=== PATIENT | female | born 1990 | race African-American/Black ===

== ENCOUNTER 2017-10-31 10:43 | Emergency (ER) | payer SELFPAY ==
[2017-10-31] MEDS ORDERED: MORPHINE 4 MG/ML SYR ONE (11:19)
[2017-10-31] MEDS ORDERED: BUPIVACAINE 0.5% PF 10 ML VIAL ONE (11:20)
[2017-10-31] MEDS ORDERED: ONDANSETRON 4 MG/2 ML VIAL ONE (11:20)
[2017-10-31] MEDS ORDERED: LIDOCAINE 1% 20 ML MDV ONE (11:20)
--- NOTE | 2017-10-31 12:22 | RAD REPORT ---
EXAM DESCRIPTION: US - Abdomen Exam Limited - 10/31/2017 12:07 pm CLINICAL HISTORY: Abdominal pain. COMPARISON: 08/23/2010 FINDINGS: The gallbladder demonstrates shadowing gallstones. No pericholecystic fluid or gallbladder wall thickening. The common bile duct is normal measuring 4 mm. The liver demonstrates no findings of intrahepatic biliary dilatation. IMPRESSION: Cholelithiasis.
[2017-10-31 12:25] LABS: Absolute Lymphocytes (CBC) 1.2 K/uL (0.7-4.9); Absolute Monocytes 0.3 K/uL (0.1-1.3); Basophils % 0.3 % (0-1.3); Eosinophils % 0.5 % (0-4.4); Hematocrit 28.9 % (36.0-45.0); Lymphocytes % 22.1 % (15.3-44.8); MCH 26.7 pg (27.0-35.0); MCV 84.7 fL (80-100); Monocytes % 5.9 % (3.3-12.3); RBC Red Blood Cell Count 3.41 M/uL (3.86-4.86)
[2017-10-31 12:42] LABS: Urine Blood TRACE (NEG); Urine Glucose NEGATIVE (NEG); Urine Protein NEGATIVE (NEG); Urine pH 6.5 (5.0-7.0)
[2017-10-31 12:46] LABS: Bicarbonate 27 mEq/L (21-31); Glucose Level 73 mg/dL (65-120); Lipase 22 U/L (22-51); Potassium 3.4 mEq/L (3.6-5.0); Sodium Level 139 mEq/L (135-145)
[2017-10-31 12:49] LABS: ALT/SGPT 16 IU/L (10-60); AST/SGOT 16 IU/L (10-42); Albumin 3.2 g/dL (3.2-5.5); Alkaline Phosphatase 51 IU/L (42-121); BUN Blood Urea Nitrogen 8 mg/dL (6-20); Bilirubin Total 0.3 mg/dL (0.3-1.2); Protein, Total 6.2 g/dL (6.0-8.3)
--- NOTE | 2017-10-31 13:09 | ER ---
Nurse's Notes [facility] Name: Apurva John Age: 27 yrs Sex: Female : 1990 Arrival Date: 10/31/2017 Time: 10:45 Bed 18 Private MD: None, None Diagnosis: Acute cystitis without hematuria. Facial swelling. Dental pain. Biliary colic. Presentation: 10/31 10:49 Presenting complaint: Patient states: Patient reports RUQ pain, states she has a hx of ae1 gall bladder stones. Patient also reports pain and swelling to the right side of her mouth and to the top, right side of gums. Transition of care: patient was not received from another setting of care. Onset of symptoms was October 30, 2017. 10:49 Method Of Arrival: Ambulatory ae1 10:49 Acuity: VICTORINO 3 ae1 10:54 Initial Sepsis Screen: Does the patient have a suspected source of infection? Yes: ae1 Other: Patient has moderate swelling to right side of mouth and foul odor from mouth. Care prior to arrival: None. 11:59 Risk Assessment: Do you want to hurt yourself or someone else? Patient reports no em desire to harm self or others. 13:35 Initial Sepsis Screen: Does the patient meet any 2 criteria? No. Patient's initial em sepsis screen is negative. Triage Assessment: 10:55 General: Appears uncomfortable, Behavior is cooperative, anxious. Pain: Complains of ae1 pain in right cheek and right jaw Pain currently is 7 out of 10 on a pain scale. Neuro: Level of Consciousness is awake, alert, obeys commands, Oriented to person, place, time, situation. Respiratory: Airway is patent. GI: Reports upper abdominal pain, nausea. GI: Reports vomiting. 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 - Social history:: Smoking status: Patient uses tobacco products, smokes one-half pack cigarettes per day. - Ebola Screening: : No symptoms or risks identified at this time. Screenin:58 Abuse screen: Denies threats or abuse. Nutritional screening: No deficits noted. em Tuberculosis screening: No symptoms or risk factors identified. Fall Risk None identified. Assessment: 11:11 General: Appears in no apparent distress. uncomfortable, Behavior is cooperative. Pain: em Complains of pain in right upper quadrant and right cheek Pain currently is 7 out of 10 on a pain scale. Neuro: Level of Consciousness is awake, alert, obeys commands, Oriented to person, place, time, situation. Neuro: Denies weakness dizziness. Cardiovascular: Capillary refill < 3 seconds Patient's skin is warm and dry. Respiratory: Airway is patent Respiratory effort is even, unlabored, Respiratory pattern is regular, symmetrical. GI: Abdomen is flat, Bowel sounds present X 4 quads. Abd is soft X 4 quads Abdomen is tender to palpation in right upper quadrant and right lower quadrant Reports nausea, vomiting. : Urine is cloudy. EENT: No signs and/or symptoms were reported regarding the EENT system. Derm: Skin is intact, Skin is pink, warm \T\ dry. Musculoskeletal: Range of motion: intact in all extremities. 11:20 Reassessment: Patient appears in no apparent distress at this time. I agree with above iw assessment by Manuel Ruby LVN. 12:34 Reassessment: Patient appears in no apparent distress at this time. Patient and/or em family updated on plan of care and expected duration. Pain level reassessed. Patient is alert, oriented x 3, equal unlabored respirations, skin warm/dry/pink. Patient states feeling better. 13:30 Reassessment: Patient appears in no apparent distress at this time. Patient and/or em family updated on plan of care and expected duration. Pain level reassessed. Patient is alert, oriented x 3, equal unlabored respirations, skin warm/dry/pink. resting comfortably Patient states feeling better. Vital Signs: 10:52 BP 140 / 85; Pulse 98; Resp 16; Temp 98.2(O); Pulse Ox 100% on R/A; Weight 79.38 kg ae1 (R); Pain 7/10; 12:10 BP 114 / 71; Pulse 61; Resp 18; Pulse Ox 100% on R/A; Pain 2/10; em 13:30 BP 121 / 69; Pulse 61; Resp 16; Temp 98.0(O); Pulse Ox 99% on R/A; Pain 3/10; em ED Course: 10:45 Patient arrived in ED. mr 10:45 None, None is Private Physician. mr 10:52 Triage completed. ae1 10:54 Arm band placed on right wrist. ae1 11:01 Anup Domínguez MD is Attending Physician. ps1 11:15 Manuel Ruby LVN is Primary Nurse. em 11:50 Ultrasound completed. Patient tolerated well. sg3 11:58 No provider procedures requiring assistance completed. em 11:59 Patient has correct armband on for positive identification. Placed in gown. Bed in low em position. Call light in reach. Side rails up X 1. 12:07 US Abdomen Limited In Process Unspecified. EDMS 12:14 Initial lab(s) drawn, by me, sent to lab. Inserted saline lock: 22 gauge in right mh5 antecubital area, using aseptic technique. Blood collected. 12:15 Urine collected: clean catch specimen, clear. mh5 13:35 IV discontinued, intact, bleeding controlled, No redness/swelling at site. Pressure em dressing applied. Administered Medications: 11:39 Drug: morphine 4 mg Route: IVP; Site: right antecubital; iw 12:54 Follow up: Response: No adverse reaction; Pain is decreased em 11:39 Drug: Zofran 4 mg Route: IVP; Site: right antecubital; iw 12:53 Follow up: Response: No adverse reaction; Nausea is decreased em Outcome: 13:08 Discharge ordered by MD. ps1 13:45 Discharged to home ambulatory. em 13:45 Condition: good 13:45 Discharge instructions given to patient, Instructed on discharge instructions, follow up and referral plans. no drinking with medication, no driving heavy equipment, medication usage, Demonstrated understanding of instructions, follow-up care, medications, Prescriptions given X 4. 13:46 Patient left the ED. em Addendum: 11/03/2017 13:01 Addendum: Culture Results: Positive urine culture. Phone call Attempt #1 Not a working s s number. Signatures: Dispatcher [employer] EDNegar Francis Manuel Ruby LVN OPERATIONS TECH em Avani Goyal RN RN Kiarra Thompson RN RN Dwight Sánchez RN RN ae1 Negar Mcdonald mh5 Anup Domínguez MD MD ps1 Juliane Sanders 3
--- NOTE | 2017-10-31 13:09 | EDPHYS ---
Physician Documentation [facility] Name: Apurva John Age: 27 yrs Sex: Female : 1990 Arrival Date: 10/31/2017 Time: 10:45 Bed 18 Private MD: None, None ED Physician Anup Domínguez HPI: 10/31 11:12 This 27 yrs old Black Female presents to ER via Ambulatory with complaints of Abdominal ps1 Pain, Mouth Swelling. 11:12 pt with history of biliary colic. No elective surgery scheduled. States her pain ps1 started 2 days ago. Rated moderate to severe with attacks. No vomiting, jaundice, or fever. Additionally patient has a history of dental caries and has 2 day history of right maxillary facial swelling and dental pain. No obvious abscess or drainage. . 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 - Social history:: Smoking status: Patient uses tobacco products, smokes one-half pack cigarettes per day. - Ebola Screening: : No symptoms or risks identified at this time. ROS: 11:12 Constitutional: Negative for fever, chills, and weight loss, Eyes: Negative for injury, ps1 pain, redness, and discharge, Cardiovascular: Negative for chest pain, palpitations, and edema, Respiratory: Negative for shortness of breath, cough, wheezing, and pleuritic chest pain, MS/Extremity: Negative for injury and deformity. 11:12 Skin: Negative for injury, rash, and discoloration, Neuro: Negative for headache, weakness, numbness, tingling, and seizure, Psych: Negative for depression, anxiety, suicide ideation, homicidal ideation, and hallucinations. 11:12 ENT: Positive for dental pain. 11:12 Abdomen/GI: Positive for abdominal pain. Exam: 11:12 Constitutional: This is a well developed, well nourished patient who is awake, alert, ps1 and in no acute distress. Head/Face: Normocephalic, atraumatic. Eyes: Pupils equal round and reactive to light, extra-ocular motions intact. Lids and lashes normal. Conjunctiva and sclera are non-icteric and not injected. 11:12 Chest/axilla: Normal chest wall appearance and motion. Nontender with no deformity. No lesions are appreciated. Cardiovascular: Regular rate and rhythm. No gallops, murmurs, or rubs. Normal PMI, no JVD. No pulse deficits. Respiratory: Lungs have equal breath sounds bilaterally, clear to auscultation and percussion. No rales, rhonchi or wheezes noted. No increased work of breathing, no retractions or nasal flaring. 11:12 Skin: Warm, dry with normal turgor. Normal color with no rashes, no lesions, and no evidence of cellulitis. MS/ Extremity: Pulses equal, no cyanosis. Neurovascular intact. Full, normal range of motion. 11:12 ENT: Mouth: Gums: reddened, swollen, on the right buccal mucosa. 11:12 Abdomen/GI: Inspection: abdomen appears normal, Bowel sounds: normal, Palpation: moderate abdominal tenderness, in the right upper quadrant. Vital Signs: 10:52 BP 140 / 85; Pulse 98; Resp 16; Temp 98.2(O); Pulse Ox 100% on R/A; Weight 79.38 kg ae1 (R); Pain 7/10; 12:10 BP 114 / 71; Pulse 61; Resp 18; Pulse Ox 100% on R/A; Pain 2/10; em 13:30 BP 121 / 69; Pulse 61; Resp 16; Temp 98.0(O); Pulse Ox 99% on R/A; Pain 3/10; em Procedures: 13:03 Nerve block: (dental) of superior alveolar block right. Medication: Lidocaine 1% with ps1 epinephrine, Marcaine 0.5%, Amount: 4 mls were injected, Effect: the patient has resolution of the pain, Set up for procedure. Performed by Anup Domínguez MD Patient tolerated well. MDM: 11:23 Patient medically screened. ps1 13:03 Data reviewed: vital signs, nurses notes, lab test result(s), radiologic studies, ps1 ultrasound. 13:03 ED course: patient has dental pain and swelling. Nerve block performed with complete ps1 resolution. UA reviewed and c/w UTI. Will treat with abx, Keflex and Bactrim. Follow up with dentist. Labs and imaging not consistent with acute hepatobiliary dysfunction. Diagnosis c/w biliary colic. Patient to follow up with general surgeon for elective cholecystectomy. . 10/31 11:11 Order name: CBC with Diff; Complete Time: 13:03 ps1 10/31 11:11 Order name: Lipase; Complete Time: 12:49 ps1 10/31 11:11 Order name: Urine Microscopic Only; Complete Time: 13:45 ps1 10/31 11:11 Order name: CMP; Complete Time: 12:49 ps1 10/31 11:51 Order name: Urine Dipstick--Ancillary (enter results); Complete Time: 12:49 bd 10/31 11:11 Order name: Urine Test (obtain specimen); Complete Time: 11: ps1 10/31 11:11 Order name: IV Saline Lock; Complete Time: : ps1 10/31 11:11 Order name: Labs collected and sent; Complete Time: 11: ps1 10/31 11:11 Order name: US Abdomen Limited; Complete Time: 12:25 ps1 10/31 11:51 Order name: Urine --Ancillary (enter results); Complete Time: 12:49 bd 10/31 13:22 Order name: Urine Culture EDMS 10/31 11:11 Order name: Urine Dipstick-Ancillary (obtain specimen); Complete Time: 11: ps1 10/31 11:55 Order name: Labs - recollect needed; Complete Time: 12:53 bd Administered Medications: 11:39 Drug: morphine 4 mg Route: IVP; Site: right antecubital; iw 12:54 Follow up: Response: No adverse reaction; Pain is decreased em 11:39 Drug: Zofran 4 mg Route: IVP; Site: right antecubital; iw 12:53 Follow up: Response: No adverse reaction; Nausea is decreased em Disposition: 10/31/17 13:08 Discharged to Home. Impression: Acute cystitis without hematuria. Facial swelling. Dental pain. Biliary colic. . - Condition is Stable. - Discharge Instructions: Biliary Colic, Dental Pain, Urinary Tract Infection. - Prescriptions for Keflex 500 mg Oral Capsule - take 1 capsule by ORAL route every 8 hours for 10 days; 30 capsule. Tylenol- Codeine #3 300-30 mg Oral Tablet - take 2 tablet by ORAL route every 6 hours As needed; 30 tablet. Medrol (Cesario) 4 mg Oral Tablets, Dose Pack - take 1 tablet by ORAL route as directed - follow package instructions; 1 packet. Bactrim DS 800- 160 mg Oral Tablet - take 1 tablet by ORAL route every 12 hours for 7 days; 14 tablet. - Medication Reconciliation Form, Thank You Letter, Antibiotic Education, Prescription Opioid Use form. - Follow up: Private Physician; When: As needed; Reason: Recheck today's complaints, Continuance of care, Re-evaluation by your physician. Follow up: Emergency Department; When: As needed; Reason: Fever > 102 F, Worsening of condition. - Problem is an ongoing problem. - Symptoms are unchanged. Signatures: Dispatcher [employer] [facility] Anahy Hinojosa, Manuel, EDGE BRUSHER EDGE BRUSHER em Avani Goyal, RN DEANDRA iw Dwight Sánchez RN RN ae1 Anup Domínguez MD MD ps1 Corrections: (The following items were deleted from the chart) 11:14 11:11 BASIC METABOLIC PANEL+[id number].BRZ ordered. [facility] 13:46 13:08 10/31/2017 13:08 Discharged to Home. Impression: Acute cystitis without em hematuria. Facial swelling. Dental pain. Biliary colic. . Condition is Stable. Forms are Medication Reconciliation Form, Thank You Letter, Antibiotic Education, Prescription Opioid Use. Follow up: Private Physician; When: As needed; Reason: Recheck today's complaints, Continuance of care, Re-evaluation by your physician. Follow up: Emergency Department; When: As needed; Reason: Fever > 102 F, Worsening of condition. Problem is an ongoing problem. Symptoms are unchanged. ps1
[2017-10-31 13:21] LABS: Urine Amorphous Sediment 1+ /HPF (NONE SEEN); Urine Bacteria 20-50 /HPF (<20); Urine Culture Reflex Order REFLEXED; Urine Mucus 1+ /HPF (NONE SEEN); Urine RBC <5 /HPF (NONE SEEN)
[2017-10-31 13:52] VITALS: BP 121/69; TEMP 98; O2SAT 99
== END 2017-10-31 13:46 | disposition home or self-care (01) ==
LOC: ER 10:43
DX: K08.89 Other specified disorders of teeth and supporting structures (principal); N30.00 Acute cystitis without hematuria; K80.50 Calculus of bile duct without cholangitis or cholecystitis without obstruction; F17.210 Nicotine dependence, cigarettes, uncomplicated; Z88.6 Allergy status to analgesic agent
CPT/HCPCS: 36415; 76705; 80053; 81003; 81015; 81025; 83690; 85025; 87077; 87086; 87088; 87186; 96374; 96375; 99284; J2405